=== PATIENT | female | born 1995 | race Caucasian/White ===

== ENCOUNTER 2020-05-26 10:34 | Day surgery (SDC) | payer OTHER ==
[~2020-05-26] VITALS: Ht 160 cm; Wt 49.9 kg
--- NOTE | 2020-05-26 15:41 | NUR ---
PT SIG OTHER COMES TO NURSES STATION TO STATE PT NEEDS TO USE RESTROOM. THIS RN ASSISTS PT TO RESTROOM WITH IV POLE. PT HAS STEADY GAIT AND IS ABLE TO VOID QS WITH NO PROBLEMS. PT BACK TO BED WITH SIG OTHER AT BEDSIDE, CALL LIGHT WITHIN REACH.
--- NOTE | 2020-05-26 16:24 | NUR ---
WAS GIVEN UPDATES WITH ADD ON EMERGENT CASES AT 1130,1530. HAS BEEN UP TO BR AT 1500. IV SITE GOOD, PATENT. HAS BEEN OK WITH LONG PREOP WAIT. AME STILL AT BS.
--- NOTE | 2020-05-26 17:12 | NUR ---
05/26/20 1712 Natalie Maloney 1658- PT ARRIVES TO ROOM #10 FOR RECOVERY. PT NONAROUSABLE TO STIMULI. RESP EVEN AND UNLABORED. OXYGEN SAT HIGH 90'S TO 100% ON 6L VIA MASK. 1704- OXYGEN TITRATED OFF. 1707- PT'S SIGNIFICANT OTHER AT THE BEDSIDE.
--- NOTE | 2020-05-26 17:49 | NUR ---
pt is awake and alert x4, denies nausea, sob, and chest pain. pt reports abd cramping is 2/10 for discomfort. pt cuca po sips of juice and water. pt is pleasant and cooperative. orders food for self using room phone.
--- NOTE | 2020-05-26 18:52 | NUR ---
Patient sitting up in bed watching tv. Patient eating dinner, tolerating meal without pain or nausea. Denies further needs, call light within reach.
--- NOTE | 2020-05-26 19:30 | NUR ---
REPORT RECEIVED, CARE OF PATIENT ASSUMED AT THIS TIME. PT IN BED WATCHING TELEVISION. PARTNER AT BEDSIDE. DENIES NEEDS.
--- NOTE | 2020-05-26 20:00 | NUR ---
pt GIVEN NORCO FOR PAIN. PT DENIES NAUSEA BUT REPORTS MILD SBDOMINAL CRAMPING. GIVEN RHOGAM IM INJECTION. PLAN TO DC AT 2030 NO FURTHER NEEDS AT THIS TIME.
--- NOTE | 2020-05-29 12:27 | OR ---
[facility] [address] [place] [address] Signed DATE OF OPERATION: SURGEON: Tomi Boyer MD PREOPERATIVE DIAGNOSIS: Missed . POSTOPERATIVE DIAGNOSIS: Missed . PROCEDURE: Suction D and C. ANESTHESIA: General. ESTIMATED BLOOD LOSS: 200 mL. COMPLICATIONS: None. DRAINS: None. FINDINGS: Vagina, no blood. Cervix, thick closed. Uterus approximately 11-week size, soft, posterior, mobile. Adnexa, no masses bilateral. DESCRIPTION OF PROCEDURE: The patient was brought into the operating room, placed in the supine position. After adequate general anesthesia was obtained, she was placed in dorsal lithotomy position, prepped and draped in usual sterile fashion. Bladder was emptied by straight catheterization and a speculum was placed in the vagina. Anterior lip of the cervix was grasped with an Allis clamp. The cervix was dilated up to a #9 dilator and then a #9 curved suction tip curette was attached to the suction machine, set to a correct pressure and tested and then the curette carefully introduced into the uterine cavity to the fundus and scraped in a 360-degree fashion removing moderate amount of normal-appearing products of conception. This was repeated and additional tissue came out. 3rd time no additional tissue was taken out, so the curette was carefully introduced to the fundus and scraped directly towards the cervix and in several Electronically Signed By: TOMI BOYER MD 05/29/20 1227 PATIENT NAME: CHANI TELLEZ OPERATIVE REPORT DATE OF : [birth year] REPORT #: [id number] PHYSICIAN: TOMI BOYER MD PCP: NO PRIMARY CARE PHYSICIAN REPORT IS CONFIDENTIAL AND NOT TO BE RELEASED WITHOUT AUTHORIZATION [facility] [address] [place] [address] [place], [place] [address] Signed different places anterior, posterior, left and right with no additional tissue was removed. Normal empty sound of the uterus could be felt throughout. At this point, curette was completely removed. The uterus palpated and noted to be much smaller, more firm, and the cervix observed and noted to have good hemostasis. At this point, all instruments were removed. The cervix observed a little longer with good hemostasis, so the procedure was terminated. The patient tolerated the procedure well, went to recovery room in good condition. The sponge and instrument count were correct at the end of the procedure. The uterine curettings and products of conception were sent to Pathology for identification. Tomi Boyer MD MJNery/MODL /[id number] Copies: ~ Electronically Signed By: TOMI BOYER MD 05/29/20 1227 PATIENT NAME: CHANI TELLEZ OPERATIVE REPORT DATE OF : [birth year] REPORT #: [id number] PHYSICIAN: TOMI BOYER MD PCP: NO PRIMARY CARE PHYSICIAN REPORT IS CONFIDENTIAL AND NOT TO BE RELEASED WITHOUT AUTHORIZATION
--- NOTE | 2020-05-30 17:56 | PATH ---
[facility] [address] [place], [place] [address] Signed SPECIMEN(S): A PRODUCTS OF CONCEPTION SPECIMEN SOURCE: A. PRODUCTS OF CONCEPTION CLINICAL HISTORY: Missed AB. FINAL PATHOLOGIC DIAGNOSIS: Products of conception: - Products of conception. - foot length of 0.6 cm is consistent with ten week gestation age fetus. TWK:cml:C2NR MICROSCOPIC EXAMINATION: The specimen contains embryonic tissue, chorionic villi, and decidua. There is no evidence of trophoblastic disease.. GROSS DESCRIPTION: The specimen, labeled "MH, A," and designated on the requisition "products of conception," is received in little to no formalin(leaking) and consists of membranous tissue with mucus clot material, and handley spongy fragments measuring 12.8 x 12.0 x 1.4 in aggregate. /embryonic fragments are grossly identified including possible hand/foot measuring up to 0.6 cm in in length. Manager Metal sections are submitted in cassette (A1). AT (under the direct supervision of a pathologist) The Gross Description was prepared using a voice recognition system. The report was reviewed for accuracy; however, sound-alike word errors, addition and/or deletions may occur. If there is any question about this report, please contact Client Services. PERFORMING LABORATORY: The technical component was performed by [facility], [address] [place] [address] (Mill Oiler: Alyssa Goldberg MD; CLIA# [id number]). [facility], [address] [address] (CLIA# [id number]). Diagnostician: Vance Kirby MD Pathologist PATIENT NAME: CHANI TELLEZ PATHOLOGY DATE OF : [birth year] REPORT #: [id number] PHYSICIAN: [facility] PCP: NO PRIMARY CARE PHYSICIAN REPORT IS CONFIDENTIAL AND NOT TO BE RELEASED WITHOUT AUTHORIZATION [address] [address] Signed Electronically Signed 05/30/2020 Copies: ~ PATIENT NAME: CHANI TELLEZ PATHOLOGY DATE OF : [birth year] REPORT #: [id number] PHYSICIAN: [facility] PCP: NO PRIMARY CARE PHYSICIAN REPORT IS CONFIDENTIAL AND NOT TO BE RELEASED WITHOUT AUTHORIZATION
== END 2020-05-26 21:00 | disposition home or self-care (01) ==
LOC: OPS 10:34 → DS 10:34 → OPS 11:30 → DS 05-27 18:00 → OPS 05-27 18:00
PROVIDERS: ATTEND General Practice
PROC: 10D17ZZ Extraction of Products of Conception, Retained, Via Natural or Artificial Opening (ICD-10-PCS; principal; 2020-05-26 11:30)
DX: O02.1 Missed abortion (principal)
CPT/HCPCS: 00952; J0131; J1100; J1885; J2001; J2405; J2590; J2704; J2790; J3010; J7121

== ENCOUNTER 2021-07-09 15:09 | Inpatient (IN) | payer OTHER ==
[~2021-07-09] VITALS: Ht 160 cm; Wt 68.5 kg
--- NOTE | 2021-07-10 00:24 | NUR ---
0015 COVID swab obtained and taken to lab.
[2021-07-10] MEDS ORDERED: PRENATAL VITAM1 EACH PO (00:50)
[2021-07-10] MEDS ORDERED: TUMS200 MG PO (00:51)
--- NOTE | 2021-07-10 12:31 | PR ---
[facility] [address] [facility] [place], [place] [address] Signed Progress Notes IP Datetime Report Generated by CPN: 07/10/2021 12:30 PROGRESS NOTES: [id number] Impression: Reassuring Heart Rate Procedures: Artificial ROM Plan: Continue Present Management Other Plans: Epidural prn VITAL SIGNS: [id number] Vital Signs: Reviewed VS Notable Details: elevated BP initially on admission EXAM: [id number] Dilatation: 2.0 Effacement: 80 Station: -2 Contractions: irregular, mild MEMBRANES: [id number] Membranes Status: Ruptured Comments: 26 yo @ 39 3/7 weeks gestation MIOL for gHTN, PC ratio 0.19 Intermittent elevated BP, no severe-range s/p cytotec x 3 AROM performed without complication FETUS A: [id number] FHR Baseline: 135 Variability: Moderate 6-25bpm Accelerations: 15X15 Decelerations: None FHR Category: Category I Comments on Fetus A: No evidence of acidemia FETUS B: [id number] Signing Physician: Jorge Carpenter DO Copies: ~ *Electronically Signed* 07/10/21 1230 JORGE CARPENTER DO PATIENT NAME: CHANI TELLEZ PROGRESS NOTE DATE OF : [birth year] PHYSICIAN: JORGE CARPENTER DO RPT #: [id number] REPORT IS CONFIDENTIAL AND NOT TO BE RELEASED WITHOUT AUTHORIZATION
--- NOTE | 2021-07-10 16:44 | PR ---
[facility] [address] [facility] [place], [place] [address] Signed Progress Notes IP Datetime Report Generated by CPN: 07/10/2021 16:44 PROGRESS NOTES: [id number] Impression: Normal Progression of Labor Procedures: Sterile Vag Exam Plan: Continue Present Management Other Plans: Epidural prn VITAL SIGNS: [id number] Vital Signs: Reviewed VS Notable Details: elevated BP initially on admission EXAM: [id number] Dilatation: 8.0 Effacement: 90 Station: -1 Contractions: irregular, mild MEMBRANES: [id number] Membranes Status: Ruptured Comments: s/p Epidural, progressing well since AROM head asynclitic, continue extreme position changes Anticipate FETUS A: [id number] FHR Baseline: 135 Variability: Moderate 6-25bpm Accelerations: 15X15 Decelerations: None FHR Category: Category I Comments on Fetus A: No evidence of acidemia FETUS B: [id number] Signing Physician: Jorge Carpenter DO Copies: ~ *Electronically Signed* 07/10/21 1644 JORGE CARPENTER DO PATIENT NAME: CHANI TELLEZ PROGRESS NOTE DATE OF : [birth year] PHYSICIAN: JORGE CARPENTER DO RPT #: [id number] REPORT IS CONFIDENTIAL AND NOT TO BE RELEASED WITHOUT AUTHORIZATION
--- NOTE | 2021-07-11 08:04 | PR ---
[facility] [address] [place], [place] [address] Signed PP Progress Notes Datetime Report Generated by KARLOS: 07/11/2021 08:04 SUBJECTIVE: [id number] Pain: Within Normal Limits Nausea/Vomiting: Denies Flatus: Yes Bowel Movement: No Vital Signs: [id number] Vital Signs: Reviewed Notable Details: Mildly elevated BP, no severe-range pressures. Cardiovascular: Normal Respiratory: Normal Abdomen/Uterus: Normal Lochia: Normal Breasts: Normal Extremities: Normal Progress: Normal Exam Comments: NAD, lying in bed with baby asleep on her chest RRR No dyspnea, no retractinos Abd SNTND, FFBU Ext trace edema IMPRESSION/PLAN/PROCEDURES: [id number] Impression: Normal Progression; Induced Hypertension Plan: Continue Present Management; Consult Progress Notes: PPD#1 s/p -MIOL for gHTN, no severe BP, PC ratio 0.17 -intermittent mildly elevated BP persistent since delivery, asymptomatic -, using nipple shield with limited success -anemia: chronic anemia of , hgb 9.5 on admission. Asymptomatic. -pain well controlled with motrin. Kidd removed, awaiting spontaneous void. Tolerating regular diet and ambulating without assistance. Plan: - consult -continue to monitor BP, if persistently elevated will start antihypertensive medication prior to discharge -continue oral iron BID with bowel care prn -encouraged frequent voiding attempts *Electronically Signed* 07/11/21 0804 JORGE CARPENTER DO PATIENT NAME: CHANI TELLEZ PROGRESS NOTE DATE OF : [birth year] PHYSICIAN: JORGE CARPENTER DO RPT #: [id number] REPORT IS CONFIDENTIAL AND NOT TO BE RELEASED WITHOUT AUTHORIZATION [address] [address] Signed -anticipate DC to home tomorrow Signing Physician: Jorge Carpenter DO Copies: ~ *Electronically Signed* 07/11/21 0804 JORGE CARPENTER DO PATIENT NAME: CHANI TELLEZ PROGRESS NOTE DATE OF : [birth year] PHYSICIAN: JORGE CARPENTER DO RPT #: [id number] REPORT IS CONFIDENTIAL AND NOT TO BE RELEASED WITHOUT AUTHORIZATION
--- NOTE | 2021-07-12 07:22 | PR ---
[facility] [address] [facility] [place], [place] [address] Signed PP Progress Notes Datetime Report Generated by CPN: 07/12/2021 07:22 SUBJECTIVE: [id number] Pain: Within Normal Limits Nausea/Vomiting: Denies Flatus: Yes Bowel Movement: No Vital Signs: [id number] Vital Signs: Reviewed Notable Details: Elevated BP consistently overnight, no severe range BP. Asymptomatic, no MARLOW/vision changes/ RUQ pain Cardiovascular: Normal Respiratory: Normal Abdomen/Uterus: Normal Lochia: Normal Breasts: Normal Extremities: Normal Progress: Abnormal Exam Comments: NAD, sitting up in bed RRR No dyspnea or retractions Abd SNTND, FFBU Ext: 1+ BL edema IMPRESSION/PLAN/PROCEDURES: [id number] Impression: Induced Hypertension Plan: Continue Present Management Other Plans: Antihypertensives Progress Notes: PPD#2 s/p , MIOL for gHTN -PreE labs repeated overnight for elevated BP. Significant for PC ratio 0.39 and Cr 0.85 -Asymptomatic, no MARLOW/ vision changes/ RUQ pain -Denies dizziness/ lightheadedness/ shortness of breath, Acute blood loss anemia on chronic anemia of . Hgb stable at 8.5 - baby with difficulty. Milk is coming in, but having challenges with latch. Plan: Start Procardia 30XL If severe BP, start IV MgSO4 and repeat preE profile *Electronically Signed* 07/12/21 0722 JORGE CARPENTER DO PATIENT NAME: CHANI TELLEZ PROGRESS NOTE DATE OF : [birth year] PHYSICIAN: JORGE CARPENTER DO RPT #: [id number] REPORT IS CONFIDENTIAL AND NOT TO BE RELEASED WITHOUT AUTHORIZATION [facility] [address] [place], [place] [address] Signed Reassess this afternoon, anticipate DC tomorrow morning after repeat labs, may consider DC tonight if completely normotensive on procardia. Signing Physician: Jorge Carpenter DO Copies: ~ *Electronically Signed* 07/12/21721 JORGE CARPENTER DO PATIENT NAME: CHANI TELLEZ PROGRESS NOTE DATE OF : [birth year] PHYSICIAN: JORGE CARPNETER DO RPT #: [id number] REPORT IS CONFIDENTIAL AND NOT TO BE RELEASED WITHOUT AUTHORIZATION
--- NOTE | 2021-07-12 17:02 | PR ---
[facility] [address] [facility] [place] [address] Signed PP Progress Notes Datetime Report Generated by CPN: 07/12/2021 17:02 SUBJECTIVE: [id number] Pain: Within Normal Limits Nausea/Vomiting: Denies Flatus: Yes Bowel Movement: Yes Vital Signs: [id number] Vital Signs: Reviewed Notable Details: Elevated BP consistently overnight, no severe range BP. Asymptomatic, no MARLOW/vision changes/ RUQ pain Cardiovascular: Normal Respiratory: Normal Abdomen/Uterus: Normal Lochia: Normal Breasts: Normal Extremities: Normal Progress: Normal Exam Comments: NAD, lying on right side nursing baby RRR No dyspnea/retractions Abd SNTND Ext: trace edema, neg Alonzo's. Patellar DTRs 3+ BL, no clonus IMPRESSION/PLAN/PROCEDURES: [id number] Impression: Difficulties; Induced Hypertension Plan: Continue Present Management Other Plans: Antihypertensives Progress Notes: PPD#2 s/p MIOL for gHTN, PC ratio positive for proteinuria. -BPs still mildy elevated today on Procardia 30XL -denies MARLOW, vision changes, RUQ pain. "Aside from the numbers, I feel really good" Acute blood loss anemia on chronic anemia of Plan: Additional dose Procardia 30XL now, then switch to Procardia 60XL in am. Continue to monitor BP overnight, recheck CMP and hemogram in am Continue assistance Anticipate DC to home tomorrow once BP well-controlled Signing Physician: Jorge Carpenter DO *Electronically Signed* 07/12/21 1342 JORGE CARPENTER DO PATIENT NAME: CHANI TELLEZ PROGRESS NOTE DATE OF : [birth year] PHYSICIAN: JORGE CARPENTER DO RPT #: [id number] REPORT IS CONFIDENTIAL AND NOT TO BE RELEASED WITHOUT AUTHORIZATION [facility] [address] [place], [place] [address] Signed Copies: ~ *Electronically Signed* 07/12/211701 JORGE CARPENTER DO PATIENT NAME: CHANI TELLEZ PROGRESS NOTE DATE OF : [birth year] PHYSICIAN: JORGE CARPENTER DO RPT #: [id number] REPORT IS CONFIDENTIAL AND NOT TO BE RELEASED WITHOUT AUTHORIZATION
--- NOTE | 2021-07-13 09:29 | PR ---
[facility] [address] [place], [place] [address] Signed PP Progress Notes Datetime Report Generated by KARLOS: 07/13/2021 09:29 SUBJECTIVE: [id number] Pain: Within Normal Limits Nausea/Vomiting: Denies Flatus: Yes Bowel Movement: Yes Vital Signs: [id number] Vital Signs: Reviewed; Within Normal Limits Notable Details: Elevated BP consistently overnight, no severe range BP. Asymptomatic, no MARLOW/vision changes/ RUQ pain Cardiovascular: Normal Respiratory: Normal Abdomen/Uterus: Normal Lochia: Normal Breasts: Normal Extremities: Normal Progress: Normal Exam Comments: NAD, sitting in bed cuddling baby RRR No dyspnea/retractions Abd SNTND, FFBU Ext: trace edema, neg Alonzo's BL. Patellar DTRs 2+ bilaterally no clonus bilaterally IMPRESSION/PLAN/PROCEDURES: [id number] Impression: Normal Progression; Induced Hypertension Plan: Continue Present Management; Discharge Other Plans: Antihypertensives Progress Notes: PPD#3 s/p @ 39.3 weeks gestation -MIOL for gHTN, now PreE without severe features BP well-controlled on Procardia 60XL Pt has access to cuff at home, desires DC to home today, reviewed PreE precautions Denies headache, vision changes, RUQ pain Cr improved this am -Anemia: chronic of with acute blood loss Continue oral iron wioth BID dosing Having diarrhea, discontinued stool softener and discussed prn use Anticipate hypokalemia is secondary to acute diarrhea -Rh negative: baby O neg, rhogam not indicated *Electronically Signed* 07/13/21 0948 JORGE CARPENTER DO PATIENT NAME: CHANI TELLEZ PROGRESS NOTE DATE OF : 97 PHYSICIAN: JORGE CARPETNER DO RPT #: [id number] REPORT IS CONFIDENTIAL AND NOT TO BE RELEASED WITHOUT AUTHORIZATION [facility] [address] [place] [address] Signed Plan: DC to home on Procardia 60XL with PreE precautions and daily home BP checks. Call if BP> 140 systolic or >90 diastolic, or if persistent MARLOW/vision changes/ RUQ pain develop. BP check in office early next week Signing Physician: Jorge Carpenter DO Copies: ~ *Electronically Signed* 07/13/2129 JORGE CARPENTER DO PATIENT NAME: CHANI TELLEZ PROGRESS NOTE DATE OF : 97 PHYSICIAN: JORGE CARPENTER DO [facility] #: [id number] REPORT IS CONFIDENTIAL AND NOT TO BE RELEASED WITHOUT AUTHORIZATION
== END 2021-07-13 11:32 | disposition home or self-care (01) | DRG 806 ==
LOC: FBC 07-10 00:08
PROVIDERS: ADMIT Obstetrics & Gynecology; ATTEND Obstetrics & Gynecology
PROC: 10E0XZZ Delivery of Products of Conception, External Approach (ICD-10-PCS; principal; 2021-07-10)
PROC: 10907ZC Drainage of Amniotic Fluid, Therapeutic from Products of Conception, Via Natural or Artificial Opening (ICD-10-PCS; 2021-07-10)
PROC: 00HU33Z Insertion of Infusion Device into Spinal Canal, Percutaneous Approach (ICD-10-PCS; 2021-07-10)
PROC: 3E0R3BZ Introduction of Anesthetic Agent into Spinal Canal, Percutaneous Approach (ICD-10-PCS; 2021-07-10)
PROC: 3E0P7VZ Introduction of Hormone into Female Reproductive, Via Natural or Artificial Opening (ICD-10-PCS; 2021-07-10)
PROC: 0KQM0ZZ Repair Perineum Muscle, Open Approach (ICD-10-PCS; 2021-07-10)
DX: O13.4 Gestational [pregnancy-induced] hypertension without significant proteinuria, complicating childbirth (principal); D62 Acute posthemorrhagic anemia; Z37.0 Single live birth; O99.02 Anemia complicating childbirth; O14.95 Unspecified pre-eclampsia, complicating the puerperium; Z20.822 Contact with and (suspected) exposure to COVID-19; Z3A.39 39 weeks gestation of pregnancy; O99.824 Streptococcus B carrier state complicating childbirth; O70.1 Second degree perineal laceration during delivery; Z67.11 Type A blood, Rh negative
CPT/HCPCS: 01960; 80053; 82565; 82570; 83030; 83615; 84156; 84550; 85027; 86850; 86900; 86901; A9270; C9803; J2405; J2540; J2590; J2790; J2795; J3010; U0003